=== PATIENT | male | born 1950 | race Caucasian/White ===

== ENCOUNTER 2021-07-02 12:58 | Outpatient (CLI) | payer MEDICARE, MEDICAID | END 2021-07-02 12:59 | disposition home or self-care (01) | LOC: CSHCT 12:58 | PROVIDERS: ATTEND Family Medicine | DX: Z12.2 Encounter for screening for malignant neoplasm of respiratory organs (principal); F17.210 Nicotine dependence, cigarettes, uncomplicated; J44.9 Chronic obstructive pulmonary disease, unspecified; R91.1 Solitary pulmonary nodule; R91.8 Other nonspecific abnormal finding of lung field; R18.8 Other ascites; J98.4 Other disorders of lung | CPT/HCPCS: 71271 ==

== ENCOUNTER 2021-07-09 08:01 | Outpatient (CLI) | payer MEDICARE, MEDICAID | END 2021-07-09 08:02 | disposition home or self-care (01) | LOC: CSHCT 08:01 | PROVIDERS: ATTEND Family Medicine | DX: J98.59 Other diseases of mediastinum, not elsewhere classified (principal); R18.8 Other ascites; K76.89 Other specified diseases of liver; N28.1 Cyst of kidney, acquired | CPT/HCPCS: 74177 ==